=== PATIENT | male | born 1995 | race Caucasian/White ===

== ENCOUNTER 2020-12-02 23:38 | Emergency (ER) | payer OTHER ==
[~2020-12-02] VITALS: Ht 177.8 cm; Wt 71.2 kg
[2020-12-02 23:49] VITALS: BP 122/75
[2020-12-03] MEDS ORDERED: HYDROcodone/APAP 5/325 TABLET PO ONE (01:00)
[2020-12-03] MEDS ORDERED: HYDROcodone/APAP 5/325 TABLET ONE (01:12)
[2020-12-03] MEDS ORDERED: IBUPROFEN 600 MG TABLET ONE (01:12)
[2020-12-03] MEDS ORDERED: IBUPROFEN 200 MG TABLET PO ONE (01:30)
--- NOTE | 2020-12-03 01:56 | NUR ---
PT HAD A HOCKEY INJURY INVOLVING HIS CLAVICLE, PT AOX4, PT DISCHARGED WITH CALLED IN [facility] AND REFERRAL TO [facility], PTS IGOR CAME TO PICK PT UP FOR DISCHARGE
== END 2020-12-03 01:58 ==
LOC: ED 12-03 00:30
DX: S42.022A Displaced fracture of shaft of left clavicle, initial encounter for closed fracture (principal); Z88.0 Allergy status to penicillin; W21.09XA Struck by other hit or thrown ball, initial encounter; Y93.22 Activity, ice hockey; Y92.328 Other athletic field as the place of occurrence of the external cause; Y99.8 Other external cause status
CPT/HCPCS: 99283